=== PATIENT | female | born 1985 | race Caucasian/White ===

== ENCOUNTER → 2020-07-30 | Outpatient (CLI) | payer BC ==
[~2020-07-30] MED LIST: IBUPROFEN 800800 M1 PO; NOHOMEMEDICATIONS; VICODIN 5-5001 EACH PO
== END ==
LOC: M.MRI 07-20 09:38
PROVIDERS: ATTEND Family Medicine
DX: M51.27 Other intervertebral disc displacement, lumbosacral region (principal); M54.41 Lumbago with sciatica, right side; G89.29 Other chronic pain; M46.1 Sacroiliitis, not elsewhere classified

== ENCOUNTER → 2020-08-25 | Outpatient (CLI) | payer BC ==
[~2020-08-25] MED LIST changes: +PROBIOTIC1 EAC7; +TYLENOL325 M1
== END ==
LOC: M.PC 09:00
PROVIDERS: ATTEND Physical Medicine & Rehabilitation
DX: M51.37 Other intervertebral disc degeneration, lumbosacral region (principal); M47.816 Spondylosis without myelopathy or radiculopathy, lumbar region; M79.604 Pain in right leg

== ENCOUNTER → 2020-09-01 | Outpatient (CLI) | payer BC | END | disposition home or self-care (01) | LOC: M.PC 08:37 | PROVIDERS: ATTEND Physical Medicine & Rehabilitation | DX: M53.3 Sacrococcygeal disorders, not elsewhere classified (principal); M54.5 Low back pain; Z98.890 Other specified postprocedural states; Z79.899 Other long term (current) drug therapy ==

== ENCOUNTER → 2021-06-13 | Outpatient (CLI) | payer BC | LOC: M.PC 10:55 | PROVIDERS: ATTEND Physical Medicine & Rehabilitation | DX: M51.36 Other intervertebral disc degeneration, lumbar region (principal); M12.88 Other specific arthropathies, not elsewhere classified, other specified site; M47.817 Spondylosis without myelopathy or radiculopathy, lumbosacral region; M79.661 Pain in right lower leg ==

== ENCOUNTER → 2021-06-29 | Outpatient (CLI) | payer BC | END | disposition home or self-care (01) | LOC: M.PC 06-22 09:40 | PROVIDERS: ATTEND Physical Medicine & Rehabilitation | DX: M53.3 Sacrococcygeal disorders, not elsewhere classified (principal); M54.59 Other low back pain; M51.16 Intervertebral disc disorders with radiculopathy, lumbar region; M47.26 Other spondylosis with radiculopathy, lumbar region; M79.604 Pain in right leg; M46.1 Sacroiliitis, not elsewhere classified; Z98.890 Other specified postprocedural states; Z79.899 Other long term (current) drug therapy ==